=== PATIENT | female | born 1975 | race Caucasian/White ===

== ENCOUNTER → 2024-05-04 08:07 | Outpatient (REF) | payer OTHER, SELFPAY | LOC: RAD 08:07 | PROVIDERS: ATTENDING PHYSICIAN Physician Assistant | DX: R22.31 Localized swelling, mass and lump, right upper limb (principal) | CPT/HCPCS: 76882 ==

== ENCOUNTER → 2025-01-04 15:13 | Outpatient (REF) | payer OTHER, SELFPAY | LOC: WDC 15:13 | PROVIDERS: ATTENDING PHYSICIAN Family Medicine | DX: Z12.31 Encounter for screening mammogram for malignant neoplasm of breast (principal) | CPT/HCPCS: 77063; 77067 ==